=== PATIENT | male | born 1965 | race Caucasian/White ===

== ENCOUNTER 2017-07-29 10:33 | Emergency (ER) | payer OTHER ==
[2017-07-29 10:38] VITALS: O2SAT 96
[2017-07-29 11:27] LABS: HEMATOCRIT 43.3 % (40.0-51.0); HEMOGLOBIN 14.6 g/dL (13.7-17.5); MEAN CELL HEMOGLOBIN 30.3 pg (27.9-34.1); MEAN CELL HEMOGLOBIN CONCENTR. 33.7 g/dL (32.4-36.7); MEAN CELL VOLUME 89.8 fL (81.5-99.8); RED BLOOD CELL COUNT 4.82 10^6/uL (4.40-6.38)
--- NOTE | 2017-07-29 11:38 | EDPHY ---
H & P Stated Complaint: PAIN IN LEFT CALF, CONCERNED ABOUT DVT HPI/ROS: CHIEF COMPLAINT: Calf pain, concerned about DVT HISTORY OF PRESENT ILLNESS: Patient complains of pain in the left calf. This originally started a day after returning from a road trip to [place]. This has been 10-14 days now. It is mild to moderate. It is worse in the evenings, keeping him up at night. It is present during the day but less so. No redness. No warmth. Possibly some swelling. No numbness or tingling. No chest pain or shortness of breath. No fever chills. He is concerned that this may be a DVT as he does have a family history of some sort of arterial or venous abnormality. He does not know whether this was atherosclerosis, peripheral vascular disease or venous thrombolic event. He has no trauma or injury. No other associated complaints or modifying factors. REVIEW OF SYSTEMS: Ten systems reviewed and are negative unless otherwise noted in the HPI PAST MEDICAL HISTORY: Orthopedic diagnoses SOCIAL HISTORY: Lives here locally in [facility]. 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 Nonsmoker. FAMILY HISTORY: Noncontributory. EXAMINATION General Appearance: Alert, no distress Head: normocephalic, atraumatic Eyes: Pupils equal and round, no conjunctival pallor or injection ENT, Mouth: Mucous membranes moist Neck: Normal inspection, supple, non-tender Respiratory: Lungs are clear to auscultation. No wheeze, rhonchi or crackles Cardiovascular: Regular rate and rhythm. No murmur. Pulses are intact distally symmetrically. 2+ DP and PT pulses. Gastrointestinal: Abdomen is soft and nontender Back: non-tender, no bony abnormalities Neurological: A&O, nonfocal, normal gait Skin: Warm and dry, no rash. No erythema. Extremities: Mild tenderness of the left calf. Range of motion is symmetric. There is minimal pain with passive dorsiflexion of the left ankle. There is no palpable cord. No asymmetry of the extremities. No evidence of DVT by examination alone. Psychiatric: Mood and affect normal DIFFERENTIAL DIAGNOSES: Including but not limited to DVT, muscle cramps, electrolyte disturbance, rhabdomyolysis, muscle spasm, dehydration MDM: 11:05 a.m. Left calf pain of nearly 2 weeks duration. This was after a long road trip to [place]. Will likely not appreciate any evidence of DVT by examination alone, he does have risk factors of family history and recent travel. I have ordered ultrasound to rule out DVT. I have also ordered laboratory studies. He is resting comfortably in no acute distress. 12:00 p.m. Contacted by radiologist. No DVT of the lower extremity. 12:30 p.m. Negative DVT study. Negative laboratory studies. Suspect this is musculoskeletal pain of uncertain etiology with possible muscle spasm. There is no evidence of rhabdomyolysis. He is neurovascular intact distally. We will try Flexeril for symptomatic relief in the evening. He will follow up with his primary care physician to discuss further care and possible physical therapy. ED precautions discussed. Discharged home stable condition in Source: Patient Exam Limitations: No limitations - Personal History Current Tetanus Diphtheria and Acellular Pertussis (TDAP): Yes Tetanus Vaccine Date: < 10 YEARS - Medical/Surgical History Hx Asthma: No Hx Chronic Respiratory Disease: No Hx Diabetes: No Hx Cardiac Disease: No Hx Renal Disease: No Hx Cirrhosis: No Hx Alcoholism: No Hx HIV/AIDS: No Hx Splenectomy or Spleen Trauma: No Other PMH: HERNIA REPAIR - Social History Smoking Status: Never smoked Constitutional: Initial Vital Signs Temperature (C) 98.6 F 07/29/17 10:35 Heart Rate 67 07/29/17 10:35 Respiratory Rate 16 07/29/17 10:35 Blood Pressure 124/68 H 07/29/17 10:35 O2 Sat (%) 96 07/29/17 10:35 O2 Delivery Mode Room Air Allergies/Adverse Reactions: Penicillins Allergy (Verified 07/29/17 10:39) Home Medications: Medication Instructions Recorded Ativan 07/29/17 Cyclobenzaprine [Flexeril 10 MG 10 mg PO TID PRN #15 tab 07/29/17 (*)] Depakote 07/29/17 Wellbutrin 07/29/17 Medical Decision Making - Data Points Laboratory Results: Laboratory Results 07/29/17 11:10 07/29/17 11:10 Departure - Departure Disposition: Home, Routine, Self-Care Clinical Impression: Muscle spasm Calf pain Qualifiers: Laterality: left Qualified Code(s): M79.662 - Pain in left lower leg Condition: Good Instructions: Muscle Spasm (ED) Additional Instructions: 1. Follow up with primary care physician for further care 2. Return to the ER for any redness, swelling or pain Referrals: Don Perez [Primary Care Provider] - As per Instructions Prescriptions: Cyclobenzaprine [Flexeril 10 MG (*)] 10 mg PO TID PRN #15 tab PRN Reason: Spasms
[2017-07-29 11:43] LABS: ANION GAP 13 mEq/L (8-16); CALCIUM 9.5 mg/dL (8.5-10.4); CARBON DIOXIDE 23 mEq/l (22-31); CHLORIDE 104 mEq/L (97-110); GLOMERULAR FILTRATION RATE > 60; GLUCOSE 102 mg/dL (70-100); POTASSIUM 4.2 mEq/L (3.5-5.2); SODIUM 140 mEq/L (134-144)
[2017-07-29 12:23] VITALS: BP 117/72; PULSE 54; RESP 14; TEMP 97.7
== END 2017-07-29 12:23 | disposition home or self-care (01) ==
DX: M62.831 Muscle spasm of calf (principal)